=== PATIENT | female | born 1955 | race Caucasian/White ===

== ENCOUNTER 2016-06-30 06:37 | Inpatient (IN) | payer BC ==
[~2016-06-30] VITALS: Ht 162.6 cm; Wt 58.2 kg
[~2016-06-30 06:37] MED LIST: BACTRIM DS1 TAB PO; CIPROFLOXACN500 MG PO
[2016-06-30] MEDS ORDERED: NAPROXEN500 MG PO (06:49)
--- NOTE | 2016-06-30 06:59 | NUR ---
PT AMBULATORY TO ROOM, MOVES SLOWLY,BENDS DOWN TO REMOVE PANTS. STATES SHE CAN NOT PRODUCE URINE AT THIS TIME
--- NOTE | 2016-06-30 07:39 | NUR ---
PT AMBULATORY TO RR IN NO DISTRESS. OBTAINED DARK AVNI URINE FOR UA
[2016-06-30 07:58] LABS: HEMATOCRIT 38.9 % (37.0-47.0); HEMOGLOBIN 14.6 g/dl (12.0-16.0); IMMATURE GRANULOCYTES 1.1 % (0.0-1.0); MEAN CELL VOLUME 89.2 fL CALC (80.0-100.0); MEAN CORPUSCULAR HGB 33.5 pG CALC (26.0-32.0); MEAN CORPUSCULAR HGB CONC 37.5 g/L CALC (32.0-36.0); NEUT# 4.75 thou/uL (2.00-7.15); RED BLOOD COUNT 4.36 mill/uL (4.20-5.60); RED CELL DISTRI WIDTH 11.8 % (11.5-15.5)
[2016-06-30 08:00] LABS: URINE BILIRUBIN - DIPSTICK NEGATIVE (NEGATIVE); URINE BLOOD DIPSTICK NEGATIVE (NEGATIVE); URINE CLARITY CLEAR; URINE COLOR YELLOW; URINE GLUCOSE - DIPSTICK NEGATIVE (NEGATIVE); URINE KETONE TRACE mg/dL (NEGATIVE); URINE LEUK ESTERASE NEGATIVE (NEGATIVE); URINE NITRITE - DIPSTICK NEGATIVE (Negative); URINE PH 5.5 (4.5-8.0); URINE PROTEIN - DIPSTICK NEGATIVE (NEG-TRACE); URINE UROBILINOGEN - DIPSTICK 0.2 E.U./dL (0.2)
--- NOTE | 2016-06-30 08:00 | NUR ---
PT STATES NAUSEA HAS SUBSIDED AND PAIN HAS IMPROVED TO BACK. VSS.
[2016-06-30 08:16] LABS: ALBUMIN 4.8 g/dL (3.2-5.0); ALKALINE PHOSPHATASE 100 u/l (38-126); AMYLASE 51 u/l (30-110); BILIRUBIN, TOTAL 1.2 mg/dL (0.0-1.4); BUN 2 mg/dL (7-17); BUN/CREATININE RATIO 4 (12-20 (CALC)); CALCIUM 9.6 mg/dL (8.4-10.2); CARBON DIOXIDE 26 mmol/l (22-30); CHLORIDE 78 mmol/l (95-108); CREATININE 0.6 mg/dL (0.5-1.0); GFR > 60 ML/MIN (>=60 (CALC)); GFR FOR AFR.AMER. > 60 ML/MIN (>=60 (CALC)); GLUCOSE 113 mg/dL (65-105); LIPASE 73 u/l (23-300); POTASSIUM 2.7 mmol/l (3.5-5.1); SGOT/AST 64 u/l (14-36); SGPT/ALT 51 u/l (9-52); TOTAL PROTEIN 8.5 g/dL (6.3-8.2)
[2016-06-30 08:19] LABS: ANION GAP 17 (6-22 (CALC))
[2016-06-30 08:23] LABS: SODIUM 118 mmol/l (137-146)
--- NOTE | 2016-06-30 08:45 | NUR ---
PT AWARE OF ADMISSION AND AGREEABLE. VSS. STOCK SAW OPERATOR INTACT. MAEW, AMB TO RR WITH SLOW STEADY GAIT
--- NOTE | 2016-06-30 09:15 | NUR ---
PT ALERT AND ORIENTED X3. NO C/O OF CP OR SOB. VSS. ON CONTINUOUS MANAGER TRADING. TOLERATING IV FLUID BOLUS
--- NOTE | 2016-06-30 09:43 | NUR ---
CALLED REPORT TO FILI VALLECILLO,TRANSPORTED TO [facility] VIA STRETCHER ON TELE.
--- NOTE | 2016-06-30 10:12 | NUR ---
REPORT RECEIVED FROM MINOO IN ED, PT ARRIVED ON UNIT VIA STRETCHER AND TRANSFERRED TO BED, ALERT AND ORIENTED X 3, DENIES PAIN AT THIS TIME STATING SHE HAD LOWER BACK PAIN EARLIER BUT BUT HAD MED IN ED AND NOW PAIN FREE. ORIENTED TO ROOM AND CALL LUEVANO, IVF 0.9 NS & 40K INFUSING @ 100ML/HR TO SITE IN [facility]. EDUCATED ON FALL PRECAUTIONS, CALL LUEVANO IN REACH, WILL CONTINUE TO MONITOR.
[2016-06-30 10:14] VITALS: BP 160/98
--- NOTE | 2016-06-30 12:11 | NUR ---
RESTING N BED AT THIS TIME, INFORMED OF NEW ORDERS AND REASON FOR THEM, C/O DOES NOT LIKE MEAL, OFFERED ALTERNATIVE REQUESTED, WILL CONTINUE TO MONITOR.
[2016-06-30 12:21] VITALS: BP 150/90
[2016-06-30 13:32] LABS: POTASSIUM 3.3 mmol/l (3.5-5.1)
[2016-06-30 15:26] VITALS: BP 150/87
--- NOTE | 2016-06-30 15:35 | NUR ---
RESTING N BED AT THIS TIME, INFORMED OF NEW ORDERS AND STATES UNDERSTANDING, ALL NEEDS ADDRESSED, CALL LUEVANO IN REACH.
[2016-06-30 18:43] LABS: ANION GAP 12 (6-22 (CALC)); CALCIUM 9.3 mg/dL (8.4-10.2); CARBON DIOXIDE 25 mmol/l (22-30); CHLORIDE 90 mmol/l (95-108); CREATININE 0.5 mg/dL (0.5-1.0); GFR > 60 ML/MIN (>=60 (CALC)); GFR FOR AFR.AMER. > 60 ML/MIN (>=60 (CALC)); GLUCOSE 121 mg/dL (65-105); POTASSIUM 3.8 mmol/l (3.5-5.1); SODIUM 123 mmol/l (137-146)
[2016-06-30 18:46] LABS: BUN 2 mg/dL (7-17); BUN/CREATININE RATIO 4 (12-20 (CALC))
[2016-06-30 20:05] VITALS: BP 140/78
--- NOTE | 2016-06-30 20:20 | NUR ---
OOB TO BSC HAVING A LOOSE BROWN MODERATE SIZED BM. A/O X3, RESPIRATIONS EVEN AND UNLABORED. DENIES PAIN. NS INFUSING TO LAC AT 100CC/HR. ENCOURAGED TO USE CALL LIGHT FOR ASSISTANCE, WILL CONTINUE TO MONITOR.
--- NOTE | 2016-07-01 00:15 | NUR ---
IN [place] RESPIRATIONS EVEN AND UNLABORED, VOICES NO CONCERNS. IV FLUIDS INFUSING TO LAC WITH NO COMPLICATIONS. CALL SHAILA PEARSON.
[2016-07-01 00:50] VITALS: BP 133/80
[2016-07-01 05:15] VITALS: BP 149/85
--- NOTE | 2016-07-01 06:25 | NUR ---
PT IN [place] WATCHING TV, ADMITS TO GETTING VERY LITTLE SLEEP DURING THE NIGHT. IV FLUIDS INFUSING TO LAC WITH NO COMPLICATIONS.
[2016-07-01 06:43] LABS: BUN < 2 mg/dL (7-17); CALCIUM 9.2 mg/dL (8.4-10.2); CARBON DIOXIDE 23 mmol/l (22-30); CHLORIDE 96 mmol/l (95-108); CREATININE 0.4 mg/dL (0.5-1.0); GFR > 60 ML/MIN (>=60 (CALC)); GFR FOR AFR.AMER. > 60 ML/MIN (>=60 (CALC)); GLUCOSE 93 mg/dL (65-105); MAGNESIUM 1.9 mg/dL (1.6-2.3); POTASSIUM 3.8 mmol/l (3.5-5.1); SODIUM 128 mmol/l (137-146)
--- NOTE | 2016-07-01 07:34 | NUR ---
REPORT RECIEVED FROM PATRICK RAJAN; PT SITTING UP IN BED; NO S/S OF DISTRESS NOTED; PT DENIES ANY NEEDS AT THIS TIME; CALL LIGHT WITHIN REACH; WILL CONTINUE TO MONITOR
[2016-07-01 08:00] VITALS: BP 136/66
--- NOTE | 2016-07-01 11:29 | NUR ---
PT RESTING IN BED WITH EYES CLOSED; PT EASILY AROUSABLE; PT DENIES ANY NEEDS AT THIS TIME; IVF INFUSING AT PRESCRIBED RATE; CALL LIGHT WITHIN REACH; WILL CONTINUE TO MONITOR
--- NOTE | 2016-07-01 12:58 | NUR ---
Discharge instructions given. Patient verbalizes understanding of same. Discharged in stable condition via Wheelchair to Home with family. All belongings sent with pt.
== END 2016-07-01 12:57 | disposition home or self-care (01) | DRG 641 ==
LOC: ENPENDDIS → ED 06:37 → ED-I 07:04 → ED 08:41 → MS2 08:42
PROVIDERS: Emergency Medicine; Internal Medicine Nephrology; ADMIT Internal Medicine; ATTEND Internal Medicine
PROC: 3E0234Z Introduction of Serum, Toxoid and Vaccine into Muscle, Percutaneous Approach (ICD-10-PCS; principal; 2016-07-01)
DX: E87.1 Hypo-osmolality and hyponatremia (principal); E83.42 Hypomagnesemia; I10 Essential (primary) hypertension; E87.6 Hypokalemia; F17.210 Nicotine dependence, cigarettes, uncomplicated; F10.20 Alcohol dependence, uncomplicated; Z23 Encounter for immunization

== ENCOUNTER 2017-04-23 19:04 | Emergency (ER) | payer BC ==
[~2017-04-23] VITALS: Ht 162.6 cm; Wt 59.1 kg
[~2017-04-23 19:04] MED LIST changes: +NAPROXEN500 MG PO
[2017-04-23 20:57] LABS: IMMATURE GRANULOCYTES 1.5 % (0.0-1.0); MEAN CORPUSCULAR HGB 35.5 pG CALC (26.0-32.0); MEAN CORPUSCULAR HGB CONC 37.3 g/L CALC (32.0-36.0); NEUT# 8.79 thou/uL (2.00-7.15); RED BLOOD COUNT 3.35 mill/uL (4.20-5.60); RED CELL DISTRI WIDTH 13.7 % (11.5-15.5)
[2017-04-23 21:00] LABS: HEMATOCRIT 31.9 % (37.0-47.0); HEMOGLOBIN 11.9 g/dl (12.0-16.0); MEAN CELL VOLUME 95.2 fL CALC (80.0-100.0)
[2017-04-23 21:12] LABS: PROTHROMBIN TIME 11.1 SECONDS (9.0-12.5)
[2017-04-23 21:35] LABS: URINE BILIRUBIN - DIPSTICK NEGATIVE (NEGATIVE); URINE BLOOD DIPSTICK NEGATIVE (NEGATIVE); URINE COLOR YELLOW; URINE GLUCOSE - DIPSTICK NEGATIVE (NEGATIVE); URINE KETONE NEGATIVE (NEGATIVE); URINE LEUK ESTERASE NEGATIVE (NEGATIVE); URINE NITRITE - DIPSTICK NEGATIVE (Negative); URINE PROTEIN - DIPSTICK NEGATIVE (NEG-TRACE); URINE SPECIFIC GRAVITY <=1.005; URINE UROBILINOGEN - DIPSTICK 0.2 E.U./dL (0.2)
[2017-04-23 21:36] LABS: BARBITURATES NEGATIVE (NEGATIVE); COCAINE NEGATIVE (NEGATIVE); METHADONE NEGATIVE (NEGATIVE); OXCYCODONE NEGATIVE (NEGATIVE); TETRAHYDROCANNABIONOL NEGATIVE (NEGATIVE); TRICYLIC ANTIDEPRESSANTS NEGATIVE (NEGATIVE); URINE CLARITY CLEAR
[2017-04-23 21:37] LABS: ALBUMIN 3.7 g/dL (3.2-5.0); BILIRUBIN, TOTAL 1.3 mg/dL (0.0-1.4); BUN < 2 mg/dL (8-23); CARBON DIOXIDE 19 mmol/l (22-30); CHLORIDE 89 mmol/l (95-108); CREATININE 0.4 mg/dL (0.5-1.0); ETHYL ALCOHOL 0 mg/dl (0-30); GFR > 60 ML/MIN (>=60 (CALC)); GFR FOR AFR.AMER. > 60 ML/MIN (>=60 (CALC)); SGOT/AST 80 u/l (9-36); SGPT/ALT 36 u/l (11-66); SODIUM 123 mmol/l (137-146)
[2017-04-23 21:47] LABS: ALKALINE PHOSPHATASE 151 u/l (38-126); ANION GAP 17 (6-22 (CALC)); POTASSIUM 2.3 mmol/l (3.5-5.1); TOTAL PROTEIN 6.6 g/dL (6.3-8.2)
[2017-04-23 21:48] LABS: MYOGLOBIN 199 ng/mL (0 - 62)
[2017-04-23 23:09] VITALS: BP 165/94
== END 2017-04-23 23:09 | disposition short-term general hospital (02) | DRG 101 ==
LOC: ED 19:04
PROVIDERS: Emergency Medicine
DX: R56.9 Unspecified convulsions (principal); E87.1 Hypo-osmolality and hyponatremia; E87.6 Hypokalemia; R55 Syncope and collapse; Y92.009 Unspecified place in unspecified non-institutional (private) residence as the place of occurrence of the external cause; I10 Essential (primary) hypertension; F17.200 Nicotine dependence, unspecified, uncomplicated; R11.2 Nausea with vomiting, unspecified; R19.7 Diarrhea, unspecified; R94.31 Abnormal electrocardiogram [ECG] [EKG]
CPT/HCPCS: J2060

== ENCOUNTER 2017-06-19 12:21 | Day surgery (SDC) | payer BC ==
[~2017-06-19] VITALS: Ht 165.1 cm; Wt 56.7 kg
[~2017-06-19 12:21] MED LIST changes: +B121000 MCG PO; +LEVOTHYROXIN50 MCG PO; +LISINOPRIL20 MG PO; +POTASSIUM99 MG PO
[2017-06-19 14:37] VITALS: BP 101/67
== END 2017-06-19 14:50 | disposition home or self-care (01) | DRG 392 ==
LOC: ENDO 12:21
PROVIDERS: ATTEND Internal Medicine Gastroenterology
PROC: 0DBP8ZX Excision of Rectum, Via Natural or Artificial Opening Endoscopic, Diagnostic (ICD-10-PCS; principal; 2017-06-19)
PROC: 0DBE8ZX Excision of Large Intestine, Via Natural or Artificial Opening Endoscopic, Diagnostic (ICD-10-PCS; 2017-06-19)
DX: R19.7 Diarrhea, unspecified (principal); K63.3 Ulcer of intestine; K64.4 Residual hemorrhoidal skin tags; K64.8 Other hemorrhoids; D64.9 Anemia, unspecified; R79.89 Other specified abnormal findings of blood chemistry; E03.9 Hypothyroidism, unspecified; Z80.0 Family history of malignant neoplasm of digestive organs

== ENCOUNTER 2022-03-15 11:49 | Inpatient (IN) | payer MEDICARE ==
[~2022-03-15] VITALS: Ht 165.1 cm; Wt 55.0 kg
[2022-03-15 13:16] VITALS: BP 153/84
[2022-03-15 13:30] VITALS: BP 149/87
[2022-03-15 13:45] VITALS: BP 143/83
[2022-03-15 13:49] LABS: BASO% 0.3 % (0-3); EOS% 0.3 % (0-8); HEMATOCRIT 33.6 % (37.0-47.0); HEMOGLOBIN 11.9 g/dl (12.0-16.0); IMMATURE GRANULOCYTES 0.9 % (0.0-5.0); MEAN CORPUSCULAR HGB CONC 35.4 g/dL CAL (32.0-36.0); MONO% 5.8 % (2-13); NEUT# 12.32 thou/uL (2.00-7.15); NEUT% 82.7 % (42-76); RED BLOOD COUNT 3.5 mill/uL (4.20-5.60)
[2022-03-15 13:55] LABS: ALBUMIN 4.3 g/dL (3.2-5.0); ALKALINE PHOSPHATASE 90 u/l (38-126); BUN 6 mg/dL (8-23); BUN/CREATININE RATIO 10 (12-20 (CALC)); CARBON DIOXIDE 19 mmol/l (22-30); CHLORIDE 91 mmol/l (95-108); CREATININE 0.6 mg/dL (0.5-1.0); GFR FOR AFR.AMER. > 60 ML/MIN (>=60 (CALC)); GFR OTHER RACES > 60 ML/MIN (>=60 (CALC)); SGOT/AST 46 u/l (9-36); SODIUM 120 mmol/l (137-146); TOTAL PROTEIN 7.2 g/dL (6.3-8.2)
[2022-03-15 13:58] LABS: ANION GAP 14 (6-22 (CALC)); BILIRUBIN, TOTAL 0.5 mg/dL (0.02-1.3); POTASSIUM 4.1 mmol/l (3.5-5.1)
[2022-03-15 14:00] VITALS: BP 146/86
[2022-03-15 14:49] LABS: URINE BILIRUBIN - DIPSTICK MODERATE (NEGATIVE); URINE BLOOD DIPSTICK LARGE (NEGATIVE); URINE COLOR RED; URINE GLUCOSE - DIPSTICK 100 mg/dL (NEGATIVE); URINE KETONE 40 mg/dL (NEGATIVE); URINE LEUK ESTERASE MODERATE (NEGATIVE); URINE NITRITE - DIPSTICK POSITIVE (Negative); URINE PROTEIN - DIPSTICK >=300 mg/dL (NEG-TRACE)
[2022-03-15 14:50] LABS: URINE BACTERIA FEW hpf; URINE EPITHELIAL CELLS FEW EPI/hpf (0-FEW); URINE RBC TNTC RBC/hpf (0-5); URINE WBC 0-2 WBC/hpf (0-5)
[2022-03-15] MEDS ORDERED: SIMVASTATIN40 MG PO (20:36)
[2022-03-15] MEDS ORDERED: CLOPIDOGREL75 MG PO (20:37)
[2022-03-15] MEDS ORDERED: NIFEDIPINE60 MG PO (20:37)
[2022-03-15] MEDS ORDERED: B121000 MC1 PO (20:38)
[2022-03-15] MEDS ORDERED: VITAMIN E400 UNIT PO (20:39)
[2022-03-15 20:53] VITALS: BP 120/70
[2022-03-15 23:42] VITALS: BP 112/67
[2022-03-16 00:06] LABS: HEMATOCRIT 29.6 % (37.0-47.0); HEMOGLOBIN 10.4 g/dl (12.0-16.0)
[2022-03-16 04:12] VITALS: BP 130/66
[2022-03-16 06:05] VITALS: BP 116/61
[2022-03-16 06:07] LABS: HEMATOCRIT 29.3 % (37.0-47.0); HEMOGLOBIN 10.3 g/dl (12.0-16.0); MEAN CORPUSCULAR HGB 34.1 pG CALC (26.0-32.0); MEAN CORPUSCULAR HGB CONC 35.2 g/dL CAL (32.0-36.0); RED BLOOD COUNT 3.02 mill/uL (4.20-5.60); RED CELL DISTRI WIDTH 12.2 % (11.5-15.5)
[2022-03-16 06:19] LABS: BUN 3 mg/dL (8-23); BUN/CREATININE RATIO 7 (12-20 (CALC)); CHLORIDE 100 mmol/l (95-108); CREATININE 0.5 mg/dL (0.5-1.0); GFR FOR AFR.AMER. > 60 ML/MIN (>=60 (CALC)); GFR OTHER RACES > 60 ML/MIN (>=60 (CALC)); MAGNESIUM 1.6 mg/dL (1.6-2.3); POTASSIUM 3.7 mmol/l (3.5-5.1)
[2022-03-16 06:28] LABS: ANION GAP 7 (6-22 (CALC)); CARBON DIOXIDE 24 mmol/l (22-30); SODIUM 127 mmol/l (137-146)
[2022-03-16 08:23] VITALS: BP 151/79
[2022-03-16 10:53] VITALS: BP 145/78
[2022-03-16 12:18] LABS: HEMATOCRIT 32.2 % (37.0-47.0); HEMOGLOBIN 11.2 g/dl (12.0-16.0)
[2022-03-16 13:28] LABS: URINE BILIRUBIN - DIPSTICK NEGATIVE (NEGATIVE); URINE BLOOD DIPSTICK LARGE (NEGATIVE); URINE CLARITY SL CLOUDY; URINE COLOR DK. YELLOW; URINE GLUCOSE - DIPSTICK NEGATIVE (NEGATIVE); URINE KETONE NEGATIVE (NEGATIVE); URINE LEUK ESTERASE NEGATIVE (Negative); URINE NITRITE - DIPSTICK NEGATIVE (Negative); URINE PROTEIN - DIPSTICK 100 mg/dL (NEG-TRACE); URINE UROBILINOGEN - DIPSTICK 0.2 E.U./dL (0.2)
[2022-03-16 13:31] LABS: URINE WBC 0-2 WBC/hpf (0-5)
[2022-03-16 15:18] VITALS: BP 130/70
[2022-03-16 22:13] VITALS: BP 106/62
[2022-03-17 00:31] VITALS: BP 112/63
[2022-03-17 04:45] VITALS: BP 118/62
[2022-03-17 05:03] LABS: HEMATOCRIT 29.7 % (37.0-47.0); HEMOGLOBIN 10.3 g/dl (12.0-16.0); MEAN CORPUSCULAR HGB 34.3 pG CALC (26.0-32.0); MEAN CORPUSCULAR HGB CONC 34.7 g/dL CAL (32.0-36.0); RED CELL DISTRI WIDTH 12.5 % (11.5-15.5)
[2022-03-17 05:16] LABS: ANION GAP 9 (6-22 (CALC)); BUN < 2 mg/dL (8-23); BUN/CREATININE RATIO 4 (12-20 (CALC)); CARBON DIOXIDE 22 mmol/l (22-30); CHLORIDE 105 mmol/l (95-108); CREATININE 0.5 mg/dL (0.5-1.0); GFR FOR AFR.AMER. > 60 ML/MIN (>=60 (CALC)); GFR OTHER RACES > 60 ML/MIN (>=60 (CALC)); MAGNESIUM 1.6 mg/dL (1.6-2.3); POTASSIUM 3.7 mmol/l (3.5-5.1); SODIUM 132 mmol/l (137-146)
[2022-03-17 06:02] VITALS: BP 129/66
[2022-03-17 10:30] VITALS: BP 182/88
[2022-03-17] MEDS ORDERED: KEFLEX500 MG PO (10:53)
[2022-03-17 12:00] VITALS: BP 140/88
[2022-03-18] MEDS ORDERED: KEFLEX500 MG PO (17:22)
== END 2022-03-17 13:52 | DRG 696 ==
LOC: ED 11:49 → ED-I 18:38 → ED 18:53 → MS2 18:54
PROVIDERS: Emergency Medicine; ADMIT Internal Medicine; ATTEND Internal Medicine
PROC: 0T9B70Z Drainage of Bladder with Drainage Device, Via Natural or Artificial Opening (ICD-10-PCS; principal; 2022-03-16)
DX: R31.0 Gross hematuria (principal); E87.1 Hypo-osmolality and hyponatremia; N39.0 Urinary tract infection, site not specified; R33.8 Other retention of urine; D75.839 Thrombocytosis, unspecified; I10 Essential (primary) hypertension; I70.1 Atherosclerosis of renal artery; E03.9 Hypothyroidism, unspecified; F10.20 Alcohol dependence, uncomplicated; F17.200 Nicotine dependence, unspecified, uncomplicated
CPT/HCPCS: Q9967

== ENCOUNTER 2022-04-01 08:05 | Inpatient (IN) | payer MEDICARE ==
[2022-04-01] VITALS (8 sets, daily range): BP systolic 118–197; BP diastolic 54–107
[~2022-04-01] VITALS: Ht 165.1 cm; Wt 54.1 kg
[~2022-04-01 08:05] MED LIST changes: +B121000 MC1 PO; +CLOPIDOGREL75 MG PO; +KEFLEX500 MG PO; +NIFEDIPINE60 MG PO; +SIMVASTATIN40 MG PO; +VITAMIN E400 UNIT PO
[2022-04-01 09:03] LABS: URINE BLOOD DIPSTICK LARGE (NEGATIVE); URINE COLOR YELLOW; URINE GLUCOSE - DIPSTICK NEGATIVE (NEGATIVE); URINE KETONE 40 mg/dL (NEGATIVE); URINE PROTEIN - DIPSTICK 100 mg/dL (NEG-TRACE); URINE SPECIFIC GRAVITY >=1.030
[2022-04-01 09:12] LABS: URINE BILIRUBIN - DIPSTICK MODERATE (NEGATIVE); URINE LEUK ESTERASE MODERATE (NEGATIVE); URINE NITRITE - DIPSTICK POSITIVE (Negative)
[2022-04-01 09:13] LABS: BASO% 0.1 % (0-3); EOS% 0.1 % (0-8); IMMATURE GRANULOCYTES 0.8 % (0.0-5.0); LYMPH% 7.9 % (15-41); MEAN CORPUSCULAR HGB 33.3 pG CALC (26.0-32.0); MEAN CORPUSCULAR HGB CONC 36.9 g/dL CAL (32.0-36.0); MONO% 9.3 % (2-13); NEUT# 10.49 thou/uL (2.00-7.15); NEUT% 81.8 % (42-76); RED BLOOD COUNT 4.2 mill/uL (4.20-5.60)
[2022-04-01 09:13] LABS: URINE BACTERIA MANY hpf; URINE EPITHELIAL CELLS FEW EPI/hpf (0-FEW); URINE RBC 25-50 RBC/hpf (0-5); URINE WBC 20-50 WBC/hpf (0-5)
[2022-04-01 09:26] LABS: ALBUMIN 4.6 g/dL (3.2-5.0); ALKALINE PHOSPHATASE 113 u/l (38-126); CARBON DIOXIDE 21 mmol/l (22-30); CREATININE 0.5 mg/dL (0.5-1.0); GFR FOR AFR.AMER. > 60 ML/MIN (>=60 (CALC)); GFR OTHER RACES > 60 ML/MIN (>=60 (CALC)); SGOT/AST 49 u/l (9-36); TOTAL PROTEIN 7.7 g/dL (6.3-8.2)
[2022-04-01 09:34] LABS: HEMATOCRIT 37.9 % (37.0-47.0); MEAN CELL VOLUME 90.2 fL CALC (80.0-100.0)
[2022-04-01 09:57] LABS: TSH, 3RD GENERATION 2.04 uIU/mL (0.47 - 4.68)
[2022-04-01 10:00] LABS: BUN < 2 mg/dL (8-23); BUN/CREATININE RATIO 4 (12-20 (CALC))
[2022-04-01 10:01] LABS: ANION GAP 17 (6-22 (CALC)); BILIRUBIN, TOTAL 1.1 mg/dL (0.02-1.3); CHLORIDE 74 mmol/l (95-108); POTASSIUM 2.8 mmol/l (3.5-5.1); SODIUM 109 mmol/l (137-146)
[2022-04-01 11:35] LABS: BUN 2 mg/dL (8-23); BUN/CREATININE RATIO 6 (12-20 (CALC)); CARBON DIOXIDE 18 mmol/l (22-30); CHLORIDE 78 mmol/l (95-108); CREATININE 0.3 mg/dL (0.5-1.0); GFR FOR AFR.AMER. > 60 ML/MIN (>=60 (CALC)); GFR OTHER RACES > 60 ML/MIN (>=60 (CALC))
[2022-04-01 11:37] LABS: ANION GAP 16 (6-22 (CALC)); POTASSIUM 3.7 mmol/l (3.5-5.1); SODIUM 108 mmol/l (137-146)
[2022-04-01 14:50] LABS: ANION GAP 15 (6-22 (CALC)); CARBON DIOXIDE 18 mmol/l (22-30); CHLORIDE 83 mmol/l (95-108); CREATININE 0.3 mg/dL (0.5-1.0); GFR FOR AFR.AMER. > 60 ML/MIN (>=60 (CALC)); GFR OTHER RACES > 60 ML/MIN (>=60 (CALC)); POTASSIUM 3.3 mmol/l (3.5-5.1)
[2022-04-01 14:56] LABS: BUN < 2 mg/dL (8-23); BUN/CREATININE RATIO 7 (12-20 (CALC))
[2022-04-01 15:05] LABS: SODIUM 113 mmol/l (137-146)
[2022-04-01 18:53] LABS: CHLORIDE 84 mmol/l (95-108); CREATININE 0.4 mg/dL (0.5-1.0); GFR FOR AFR.AMER. > 60 ML/MIN (>=60 (CALC)); GFR OTHER RACES > 60 ML/MIN (>=60 (CALC)); POTASSIUM 2.8 mmol/l (3.5-5.1)
[2022-04-01 19:04] LABS: ANION GAP 10 (6-22 (CALC)); BUN 2 mg/dL (8-23); BUN/CREATININE RATIO 5 (12-20 (CALC)); CARBON DIOXIDE 22 mmol/l (22-30); SODIUM 113 mmol/l (137-146)
[2022-04-01 23:24] LABS: ANION GAP 7 (6-22 (CALC)); CARBON DIOXIDE 20 mmol/l (22-30); CHLORIDE 90 mmol/l (95-108); CREATININE 0.4 mg/dL (0.5-1.0); GFR FOR AFR.AMER. > 60 ML/MIN (>=60 (CALC)); GFR OTHER RACES > 60 ML/MIN (>=60 (CALC)); POTASSIUM 2.6 mmol/l (3.5-5.1)
[2022-04-01 23:33] LABS: BUN < 2 mg/dL (8-23); BUN/CREATININE RATIO 5 (12-20 (CALC))
[2022-04-01 23:34] LABS: SODIUM 114 mmol/l (137-146)
[2022-04-02] VITALS (7 sets, daily range): BP systolic 93–163; BP diastolic 55–86
[2022-04-02 08:34] LABS: HEMATOCRIT 36.9 % (37.0-47.0); HEMOGLOBIN 13.2 g/dl (12.0-16.0); MEAN CELL VOLUME 91.8 fL CALC (80.0-100.0); MEAN CORPUSCULAR HGB 32.8 pG CALC (26.0-32.0); MEAN CORPUSCULAR HGB CONC 35.8 g/dL CAL (32.0-36.0); RED BLOOD COUNT 4.02 mill/uL (4.20-5.60); RED CELL DISTRI WIDTH 11.2 % (11.5-15.5)
[2022-04-02 08:50] LABS: ALBUMIN 4.2 g/dL (3.2-5.0); AMYLASE 47 u/l (30-110); CARBON DIOXIDE 19 mmol/l (22-30); CHLORIDE 91 mmol/l (95-108); CREATININE 0.4 mg/dL (0.5-1.0); GFR FOR AFR.AMER. > 60 ML/MIN (>=60 (CALC)); GFR OTHER RACES > 60 ML/MIN (>=60 (CALC)); LIPASE 80 u/l (23-300)
[2022-04-02 08:53] LABS: BUN < 2 mg/dL (8-23)
[2022-04-02 08:54] LABS: MAGNESIUM 2.4 mg/dL (1.6-2.3); POTASSIUM 3.6 mmol/l (3.5-5.1); SODIUM 120 mmol/l (137-146)
[2022-04-03 00:07] VITALS: BP 117/68
[2022-04-03 04:35] VITALS: BP 114/66
[2022-04-03 05:57] LABS: BASO% 0.4 % (0-3); EOS% 0.7 % (0-8); HEMATOCRIT 31.5 % (37.0-47.0); IMMATURE GRANULOCYTES 1.4 % (0.0-5.0); LYMPH% 23.5 % (15-41); MEAN CELL VOLUME 93.8 fL CALC (80.0-100.0); MEAN CORPUSCULAR HGB 32.4 pG CALC (26.0-32.0); MEAN CORPUSCULAR HGB CONC 34.6 g/dL CAL (32.0-36.0); MONO% 11.5 % (2-13); NEUT# 5.04 thou/uL (2.00-7.15); NEUT% 62.5 % (42-76); RED BLOOD COUNT 3.36 mill/uL (4.20-5.60); RED CELL DISTRI WIDTH 11.5 % (11.5-15.5)
[2022-04-03 06:13] LABS: HEMOGLOBIN 10.9 g/dl (12.0-16.0)
[2022-04-03 06:17] LABS: ALKALINE PHOSPHATASE 75 u/l (38-126); ANION GAP 6 (6-22 (CALC)); CARBON DIOXIDE 22 mmol/l (22-30); CHLORIDE 100 mmol/l (95-108); CREATININE 0.3 mg/dL (0.5-1.0); GFR FOR AFR.AMER. > 60 ML/MIN (>=60 (CALC)); GFR OTHER RACES > 60 ML/MIN (>=60 (CALC)); MAGNESIUM 1.8 mg/dL (1.6-2.3); POTASSIUM 3.5 mmol/l (3.5-5.1); SGOT/AST 31 u/l (9-36); SODIUM 125 mmol/l (137-146)
[2022-04-03 06:18] LABS: ALBUMIN 3.3 g/dL (3.2-5.0); BILIRUBIN, TOTAL 0.4 mg/dL (0.02-1.3); BUN 2 mg/dL (8-23); BUN/CREATININE RATIO 7 (12-20 (CALC)); TOTAL PROTEIN 5.9 g/dL (6.3-8.2)
[2022-04-03 06:55] VITALS: BP 154/81
[2022-04-03 10:10] VITALS: BP 125/73
[2022-04-03] MEDS ORDERED: LEVAQUIN750 M1 PO (10:30)
[2022-04-03] MEDS ORDERED: CHLORDIAZEPOXID25 M1 PO (10:30)
== END 2022-04-03 13:54 | DRG 641 ==
LOC: ED 08:05 → ED-I 10:00 → ED 10:35 → MS2 10:36
PROVIDERS: Family Medicine; Internal Medicine Nephrology; Nurse Practitioner Family; ADMIT Internal Medicine; ATTEND Internal Medicine
DX: E87.1 Hypo-osmolality and hyponatremia (principal); N39.0 Urinary tract infection, site not specified; E87.6 Hypokalemia; E87.20 Acidosis, unspecified; F10.20 Alcohol dependence, uncomplicated; E83.39 Other disorders of phosphorus metabolism; E83.42 Hypomagnesemia; I10 Essential (primary) hypertension; I70.1 Atherosclerosis of renal artery; E03.9 Hypothyroidism, unspecified; R33.9 Retention of urine, unspecified; F17.200 Nicotine dependence, unspecified, uncomplicated; B96.5 Pseudomonas (aeruginosa) (mallei) (pseudomallei) as the cause of diseases classified elsewhere; Z20.822 Contact with and (suspected) exposure to COVID-19; Z96.0 Presence of urogenital implants
CPT/HCPCS: J1650; J3475

== ENCOUNTER 2023-03-10 16:07 | Inpatient (IN) | payer MEDICARE ==
[~2023-03-10] VITALS: Ht 165.1 cm; Wt 56.6 kg
[2023-03-10] VITALS (12 sets, daily range): BP systolic 107–154; BP diastolic 69–88
[~2023-03-10 16:07] MED LIST changes: +CHLORDIAZEPOXID25 M1 PO; +LEVAQUIN750 M1 PO
--- NOTE | 2023-03-10 16:15 | NUR ---
PT TO ROOM 8 VIA W/C, C/O ABD PAIN WITH WEAKNESS, CHANGED TO GOWN, CALL LIGHT IN REACH, AT SIDE, PROVIDER NOTIFIED.
--- NOTE | 2023-03-10 17:15 | NUR ---
IN ROOM TO PLACE KING CATH PER ORDERS, PETE BHATIA NOTED, CALL LIGHT IN REACH, IN ROOM.
[2023-03-10 17:17] LABS: BUN 4 mg/dL (8-23); BUN/CREATININE RATIO 10 (12-20 (CALC)); CARBON DIOXIDE 23 mmol/l (22-30); CREATININE 0.4 mg/dL (0.5-1.0); GFR FOR AFR.AMER. > 60 ML/MIN (>=60 (CALC)); GFR OTHER RACES > 60 ML/MIN (>=60 (CALC)); POTASSIUM 2.8 mmol/l (3.5-5.1); SGOT/AST 45 u/l (9-36)
[2023-03-10 17:20] LABS: BASO% 0.2 % (0-3); EOS% 1.7 % (0-8); HEMATOCRIT 34.2 % (37.0-47.0); HEMOGLOBIN 12.8 g/dl (12.0-16.0); IMMATURE GRANULOCYTES 1.5 % (0.0-5.0); LYMPH% 7.8 % (15-41); MEAN CELL VOLUME 89.5 fL CALC (80.0-100.0); MEAN CORPUSCULAR HGB 33.5 pG CALC (26.0-32.0); MEAN CORPUSCULAR HGB CONC 37.4 g/dL CAL (32.0-36.0); MONO% 11.2 % (2-13); NEUT# 13.17 thou/uL (2.00-7.15); NEUT% 77.6 % (42-76); RED BLOOD COUNT 3.82 mill/uL (4.20-5.60); RED CELL DISTRI WIDTH 12.7 % (11.5-15.5)
[2023-03-10 17:27] LABS: ALBUMIN 4.3 g/dL (3.2-5.0); ALKALINE PHOSPHATASE 152 u/l (38-126); ANION GAP 14 (6-22 (CALC)); BILIRUBIN, TOTAL 0.8 mg/dL (0.02-1.3); CHLORIDE 72 mmol/l (95-108); SODIUM 106 mmol/l (137-146); TOTAL PROTEIN 7.4 g/dL (6.3-8.2)
[2023-03-10 18:01] LABS: URINE BILIRUBIN - DIPSTICK Negative (NEGATIVE); URINE BLOOD DIPSTICK Negative (NEGATIVE); URINE GLUCOSE - DIPSTICK Negative (NEGATIVE); URINE KETONE Negative (NEGATIVE); URINE LEUK ESTERASE Negative (NEGATIVE); URINE NITRITE - DIPSTICK Negative (Negative); URINE PROTEIN - DIPSTICK Negative (NEG-TRACE); URINE UROBILINOGEN - DIPSTICK 0.2 E.U./dL (0.2)
[2023-03-10 18:02] LABS: URINE COLOR Yellow
[2023-03-10] MEDS ORDERED: NIFEDIPINE90 M1 PO (19:14)
[2023-03-10] MEDS ORDERED: LEVOTHYROXIN25 MC1 PO (19:15)
--- NOTE | 2023-03-10 19:20 | NUR ---
RECIEVED REPORT FROM FILI ABEBE AT THIS TIME. PATIENT RESTING TO (R) SIDE, PATIENT UPDATED ON CONTINUOUS PLAN OF CARE, PATIENT VERBALIZES UNDERSTANDING, PATIENT NOTED TO BE SLOW TO RESPOND AT THIS TIME. PATIENT HAS IVF NS RUNNING PER ORDERS. LIGHTS DIMMED FOR COMFORT AT THIS TIME, WARM BLANKET APPLIED, AWAITING ALL FURTHER ORDERS/RESULTS.
--- NOTE | 2023-03-10 20:00 | NUR ---
PATIENT UPDATED ON CONTINUOUS PLAN OF CARE WITH NO FURTHER QUESTIONS OR CONCERNS AT THIS TIME, IVF RUNNING AT THIS TIME, PATIENT KING UNCLAMPED AT THIS TIME AND RECLAMPED DUE TO LARGE AMOUNT OF URINE, PATIENT UPDATED ON PLAN FOR ADMISSION, AWAITING ROOM ASSIGNMENT AT THIS TIME.
--- NOTE | 2023-03-10 20:30 | NUR ---
PATIENT REMAINS AALERT AND ORIENTATED X4, SLOW TO RESPOND TO QUESTIONS, PATIENT VOICES HEARING AIDS ARE NOT IN PLACE, PATIENT KING UNCLAMPED AT THIS TIME, CONTINUOUS URINE DRAINAGE NOTED, KING RECLAMPED AT THIS TIME, IVF CONTINUALLY RUNNING, AWAITING ROOM ASSIGNMENT AT THIS TIME.
--- NOTE | 2023-03-10 21:00 | NUR ---
PATIENT STATUS REMAINS WITHOUT CHANGE AT THIS TIME, KING UNCLAMPED AND RECLAMPED DUE TO SLOWER CONTINUAL URINE DRAINAGE, TOTAL OUTPUT AT THIS TIME IS NOTED TO BE 1575ML SINCE 1900, PATIENT VOICES NO DISCOMFORT OF ABDOMEN, DENIES PAIN, PATIENT CONNECTED TO CONTINUOUS MONITOORING, AWAITING ROOM ASSIGNMENT AT THIS TIME.
--- NOTE | 2023-03-10 21:50 | NUR ---
PATIENT MEDICATED PER ORDERS AT THIS TIME. UPDATED ON CONTINUOUS PLAN OF CARE AT THIS TIME, PATIENT VOICES UNDERSTANDING WITH NO FURTHER QUESTIONS OR CONCERNS AT THIS TIME ,PATIENT REMAINS ALERT AND ORIENTATED X4, PATIENT AWAITING ROOM ASSIGNMENT AT THIS TIME. IVF RUNNING CONTINUALLY.
--- NOTE | 2023-03-10 22:06 | NUR ---
REPORT CALLED TO FILI LUND AT THIS TIME, PATIENT AWAITING TRANSPORT TO FLOOR.
--- NOTE | 2023-03-10 22:19 | NUR ---
PATIENT GATHERED ALL BELONGINGS AT THIS TIME, PATIENT REMAINS WITHOUT CHANGE, NO NUERO DEFICITS NOTED, IVF RUNNING CONTINUALLY, PATIENT UPDATED ON CONTINUOUS PLAN OF CARE, TRANSPORTED TO ICU AT THIS TIIME BY WEL[facility] AGENT ON CONTINUOUS MONITORING.
--- NOTE | 2023-03-10 22:20 | NUR ---
PT ADMITTED TO ICU BED 2 VIA STRETCHER FROM E.R. PT STOOD AND TRANSFERRED TO BED WITH ONE MOD ASSIST, PT GAIT SLIGHTLY UNSTEADY; PER PT HAS BEEN THAT WAY SINCE YESTERDAY (03/09/23); PT DENIES USING/NEEDING A CANE, WALKER OR OTHER ASSISTIVE DEVICE AT HOME; PT ADMITS TO DRINKING 3-4 BEERS PER DAY; AND SMOKING 2 OACKS OF CIGARETTES AT HOME WELL; PT CAME INTO E.R. FO URINARY RETENTION; KING PLACED IN E.R. AND PER REPORT PT HAD TOTAL OF 4075 mL URINE OUT PER REPORT; PT ALERT ADN ORIENTED; COMPLAINS ONLY OF THE UNSTEADINESS COMPLAINT. NS INFUCING AT PRESCRIBED RATE; PT TAKES PO MEDICATIONS W/O INCIDENT. SAFETY MEASURES INTRODUCED; PT INSTRUCTED / ENCOURGAED TO CALL FOR ANY OOB ACTIVITY; PT VERBALIZES UNDERSTANDING AND COMPLAINCY; ORIENTED TO ROOM AND UNIT; CALL LUEVANO WITHIN REACH;, WILL COTNINUE TO MONITOR.
[2023-03-11] VITALS (25 sets, daily range): BP systolic 80–147; BP diastolic 39–79
--- NOTE | 2023-03-11 00:01 | NUR ---
PT RESTING NO NEW COMPLAINTS OFFERED; IVF CONTINUE ORDERED; EASILY VISIBLE FROM NURSES STATION FOR SAFETY. WILL CONTINUE TO MONITOR.
--- NOTE | 2023-03-11 01:17 | NUR ---
PT RESTING; NO S/S OF DITRESS; CALL LUEVANO WITHIN REACH; WILL CONTINUE TO MONITOR
--- NOTE | 2023-03-11 02:40 | NUR ---
PT RESTING WITH EYES CLOSED; NO S/S OF DISTRESS OR DISCOMFORT; KING CATH INTACT DRAINING CLEAR YELLOW URINE; IVF INFUSING W/O INCIDENT
--- NOTE | 2023-03-11 04:40 | NUR ---
LAB AT [facility] FOR AM DRAW; PT REQUESTED TO ATTEMPT TO DRAW FROM IV ACCESS; UNSUCCESSFUL; LAB OBTAINED W/O INCIDENT; CALL LUEVANO WITHIN REACH; WILL CONTINUE TO MONITOR
[2023-03-11 05:10] LABS: BASO% 0.4 % (0-3); EOS% 3.9 % (0-8); HEMATOCRIT 34.3 % (37.0-47.0); HEMOGLOBIN 12.6 g/dl (12.0-16.0); IMMATURE GRANULOCYTES 1.7 % (0.0-5.0); LYMPH% 11.2 % (15-41); MEAN CELL VOLUME 91.2 fL CALC (80.0-100.0); MEAN CORPUSCULAR HGB 33.5 pG CALC (26.0-32.0); MEAN CORPUSCULAR HGB CONC 36.7 g/dL CAL (32.0-36.0); MONO% 13.6 % (2-13); NEUT# 6.59 thou/uL (2.00-7.15); NEUT% 69.2 % (42-76); RED BLOOD COUNT 3.76 mill/uL (4.20-5.60); RED CELL DISTRI WIDTH 12.8 % (11.5-15.5)
--- NOTE | 2023-03-11 05:25 | NUR ---
KING EMPTIED OF 850 mL CLEAR YELLOW URINE; PT REPOSITIONS SELF FOR COMFORT; NO COMPLAINTS OFFERED; WILL CONTINUE TO MONITOR; CALL LUEVANO WITHIN REACH.
[2023-03-11 05:35] LABS: ALBUMIN 3.5 g/dL (3.2-5.0); ALKALINE PHOSPHATASE 132 u/l (38-126); BILIRUBIN, TOTAL 0.9 mg/dL (0.02-1.3); BUN 3 mg/dL (8-23); BUN/CREATININE RATIO 8 (12-20 (CALC)); CALCULATED LDLCHOLESTEROL 77 mg/dL (62-129 (CALC)); CARBON DIOXIDE 24 mmol/l (22-30); CREATININE 0.4 mg/dL (0.5-1.0); GFR FOR AFR.AMER. > 60 ML/MIN (>=60 (CALC)); GFR OTHER RACES > 60 ML/MIN (>=60 (CALC)); HDL CHOLESTEROL 102 mg/dL (39.0-59.0); MAGNESIUM 1.9 mg/dL (1.6-2.3); SGOT/AST 36 u/l (9-36); TOTAL CHOLESTEROL 202 mg/dl (0-199); TOTAL PROTEIN 6.2 g/dL (6.3-8.2); TOTAL TRIGLYCERIDES 114 mg/dl (0-149); VLDL CHOLESTROL 23 mg/dl (1-41 (CALC))
[2023-03-11 05:40] LABS: ANION GAP 12 (6-22 (CALC)); CHLORIDE 88 mmol/l (95-108); POTASSIUM 3.7 mmol/l (3.5-5.1); SODIUM 120 mmol/l (137-146)
--- NOTE | 2023-03-11 06:25 | NUR ---
PT AWAKENED TO TAKE AM POMEDICATION; TOLERATED W/O INCIDENT; NA REMAINS LOW BUT MUCH IMPROVED ID POTASSIUM; CALL LUEVANO WITHIN REACH, KING CATH INTACT DRAINING CELAR YELLOW URINE; WILL CONTINUE TO MONITOR.
--- NOTE | 2023-03-11 07:04 | NUR ---
PT REPORT RECEIVED FROM STATISTICS INTERN. PT IS SLEEPING AT THIS TIME. VITAL SIGNS STABLE. IV FLUIDS INFUSING.
--- NOTE | 2023-03-11 12:00 | NUR ---
pt sitting up in bed, states usually drinks 6 pack of beer a night and wants something for nerves, dr. valdovinos notified and mvi bag ordered. pt alert/oriented x3.
--- NOTE | 2023-03-11 15:09 | NUR ---
PT REMAINS PAIN FREE, RESTING QUIETLY ON BED, VITAL SIGNS STABLE. WILL CONTINUE TO MONITER.
--- NOTE | 2023-03-11 17:43 | NUR ---
pt sitting up in bed eating, no complaints, vital signs remain stable.
--- NOTE | 2023-03-11 19:20 | NUR ---
PT ALERT ADN ORIENTED; RESTING IN BED; NO COMPAINTS VOICED AT THIS TIME; NS INFUSING AT PRESCRIBED RATE; PT TAKES PO MEDICATIONS W/O INCIDENT. SAFETY MEASURES REINFORCED; PT INSTRUCTED / ENCOURGAED TO CALL FOR ANY OOB ACTIVITY; PT VERBALIZES UNDERSTANDING AND COMPLIANCY; RE-ORIENTED TO ROOM AND UNIT; CALL LUEVANO WITHIN REACH;, WILL COTNINUE TO MONITOR.
--- NOTE | 2023-03-11 21:05 | NUR ---
MEDICATED ORDERED, OFFERS NO COMPLAINTS; ASKING ABOUT THE FREQUENCY OF THE NICOTINE PATCH; EDUCATION PROVIDED; WILL CONTINUE TO MONITOR.
--- NOTE | 2023-03-11 22:15 | NUR ---
PT WATCHING TELEVISION; NO S/S OF DISTRESS; KING INTACT DRAINING LARGE AMOUTNS CLEAR YELLOW URINE. CALL LUEVANO WITHIN REACH; WILL CONTINUE TO MONITOR
[2023-03-12] VITALS (17 sets, daily range): BP systolic 127–182; BP diastolic 59–102
--- NOTE | 2023-03-12 00:05 | NUR ---
PT RETIGN WITH EYES CLOSED; KING EMPTIED OF 1800 ML CLEAR YELLOW URINE; IVF CONTINUE AT PRESCRIBED RATE; NO S/S OF DISTRESS OR DISCOMFORT; CALL LUEVANO WITHIN REACH; WILL CONTINUE TO MONITOR.
--- NOTE | 2023-03-12 02:10 | NUR ---
PT RESTING WITH EYES CLOSED; NO S/S OF DISTRESS OR DISCOMFORT; CALL LUEVANO WITHIN REACH.
--- NOTE | 2023-03-12 03:43 | NUR ---
PT DOZING; EYES CLOSED; RESPS EVEN AND UNLABORED; NO S/S OF DISTRESS OR DISCOMFORT; CALL LUEVANO WITHIN REACH.
--- NOTE | 2023-03-12 04:44 | NUR ---
PT DOZING; OFFERS NO COMPLAINTS; CALL LUEVANO WITHIN REACH.
--- NOTE | 2023-03-12 05:11 | NUR ---
LAB AT BEDSIDE FOR AM DRAW.
[2023-03-12 06:23] LABS: BASO% 0.8 % (0-3); EOS% 4.3 % (0-8); IMMATURE GRANULOCYTES 1.9 % (0.0-5.0); LYMPH% 17.3 % (15-41); MEAN CELL VOLUME 95.2 fL CALC (80.0-100.0); MEAN CORPUSCULAR HGB 34.6 pG CALC (26.0-32.0); MEAN CORPUSCULAR HGB CONC 36.4 g/dL CAL (32.0-36.0); MONO% 13.9 % (2-13); NEUT# 4.92 thou/uL (2.00-7.15); NEUT% 61.8 % (42-76); RED BLOOD COUNT 2.89 mill/uL (4.20-5.60)
[2023-03-12 06:24] LABS: HEMATOCRIT 27.5 % (37.0-47.0)
--- NOTE | 2023-03-12 06:26 | NUR ---
pt takes am po medications w/o incident; no complaints voiced; call manuel within reach.
[2023-03-12 06:29] LABS: ALKALINE PHOSPHATASE 94 u/l (38-126); BUN 2 mg/dL (8-23); BUN/CREATININE RATIO 7 (12-20 (CALC)); CARBON DIOXIDE 22 mmol/l (22-30); CREATININE 0.4 mg/dL (0.5-1.0); GFR FOR AFR.AMER. > 60 ML/MIN (>=60 (CALC)); GFR OTHER RACES > 60 ML/MIN (>=60 (CALC)); POTASSIUM 3.3 mmol/l (3.5-5.1); SGOT/AST 31 u/l (9-36)
[2023-03-12 06:39] LABS: ALBUMIN 2.6 g/dL (3.2-5.0); ANION GAP 5 (6-22 (CALC)); BILIRUBIN, TOTAL 0.4 mg/dL (0.02-1.3); CHLORIDE 103 mmol/l (95-108); MAGNESIUM 1.4 mg/dL (1.6-2.3); SODIUM 127 mmol/l (137-146); TOTAL PROTEIN 4.9 g/dL (6.3-8.2)
--- NOTE | 2023-03-12 08:30 | NUR ---
ASSESSMENT IS COMPLETED: IV SITE IS FREE FROM REDNESS OR EDEMA. KING DRAIMING YELLOW URINE. HR IS REG,PULSES ARE STRONG X4,ABD IS SOFT WITH ACTIVE BS. BREATH SOUNDS ARE DIMINISHED AND HAS EXPIRATORY WHEEZING ON LEFT UPPER LOBE. CONTINUE TO OBSERVE AND MONITOR.
--- NOTE | 2023-03-12 09:42 | NUR ---
PT IS GETTING KING DISCONTINUED CATHETER INTACT.
--- NOTE | 2023-03-12 10:00 | NUR ---
PT HAS BEEN RELAXING IN BED WITH NO DISTRESS NOTED. IV SITE REMAINS FREE FROM REDNESS OR EDEMA.
[2023-03-12] MEDS ORDERED: TAMSULOSIN0.4 MG PO (10:36)
--- NOTE | 2023-03-12 12:17 | NUR ---
IV SITE TAKEN OUT AND CATHETER INTACT. PT IS CALLING FOR HER RIDE.
--- NOTE | 2023-03-12 13:00 | NUR ---
PT HAS BEEN DISCHARGED. WENT BY PRASANNA.
== END 2023-03-12 12:30 | disposition home or self-care (01) | DRG 641 ==
LOC: ED 16:07 → ED-I 18:15 → ED 19:42 → ICU 19:43
PROVIDERS: Nurse Practitioner; ADMIT Student in an Organized Health Care Education/Training Program; ATTEND Student in an Organized Health Care Education/Training Program
PROC: 0T9B70Z Drainage of Bladder with Drainage Device, Via Natural or Artificial Opening (ICD-10-PCS; principal; 2023-03-10)
DX: E87.1 Hypo-osmolality and hyponatremia (principal); E87.6 Hypokalemia; R33.9 Retention of urine, unspecified; E87.8 Other disorders of electrolyte and fluid balance, not elsewhere classified; E83.42 Hypomagnesemia; I10 Essential (primary) hypertension; E03.9 Hypothyroidism, unspecified; I70.1 Atherosclerosis of renal artery; F10.20 Alcohol dependence, uncomplicated; F17.210 Nicotine dependence, cigarettes, uncomplicated
CPT/HCPCS: J1650; J3475

== ENCOUNTER 2023-03-28 14:12 | Emergency (ER) | payer MEDICARE ==
[2023-03-28] VITALS (11 sets, daily range): BP systolic 142–186; BP diastolic 85–104
[~2023-03-28] VITALS: Ht 165.1 cm; Wt 57.1 kg
[~2023-03-28 14:12] MED LIST changes: +LEVOTHYROXIN25 MC1 PO; +NIFEDIPINE90 M1 PO; +TAMSULOSIN0.4 MG PO
[2023-03-28] MEDS ORDERED: ORPHENADRINE CITRATE 30 MG/ML AMP IM ONE (14:55)
[2023-03-28] MEDS ORDERED: KETOROLAC TROMETHAMINE 30 MG/ML SDV IM ONE (14:55)
[2023-03-28] MEDS ORDERED: DEXAMETHASONE SOD. PHOSPHATE 10 MG/ML VIAL IM ONE (14:55)
[2023-03-28 16:43] LABS: BASO% 0.1 % (0-3); EOS% 0.1 % (0-8); IMMATURE GRANULOCYTES 0.4 % (0.0-5.0); LYMPH% 7.2 % (15-41); MEAN CELL VOLUME 96.2 fL CALC (80.0-100.0); MEAN CORPUSCULAR HGB 33.8 pG CALC (26.0-32.0); MEAN CORPUSCULAR HGB CONC 35.1 g/dL CAL (32.0-36.0); MONO% 5.8 % (2-13); NEUT# 17.8 thou/uL (2.00-7.15); NEUT% 86.4 % (42-76); RED BLOOD COUNT 4.26 mill/uL (4.20-5.60); RED CELL DISTRI WIDTH 13.1 % (11.5-15.5)
[2023-03-28 16:48] LABS: BUN 5 mg/dL (8-23); BUN/CREATININE RATIO 15 (12-20 (CALC)); CARBON DIOXIDE 20 mmol/l (22-30); CHLORIDE 92 mmol/l (95-108); CREATININE 0.3 mg/dL (0.5-1.0); GFR FOR AFR.AMER. > 60 ML/MIN (>=60 (CALC)); GFR OTHER RACES > 60 ML/MIN (>=60 (CALC)); SODIUM 121 mmol/l (137-146)
[2023-03-28 16:49] LABS: ALBUMIN 4.2 g/dL (3.2-5.0); ALKALINE PHOSPHATASE 201 u/l (38-126); ANION GAP 13 (6-22 (CALC)); BILIRUBIN, TOTAL 0.8 mg/dL (0.02-1.3); POTASSIUM 4.3 mmol/l (3.5-5.1); SGOT/AST 55 u/l (9-36); TOTAL PROTEIN 7.1 g/dL (6.3-8.2)
[2023-03-28 17:11] LABS: HEMOGLOBIN 14.4 g/dl (12.0-16.0)
[2023-03-28 17:24] LABS: ACT PARTIAL THROMBO TIME 25.3 SECONDS (20.0-32.5); PROTHROMBIN TIME 9.5 SECONDS (9.0-12.5)
== END 2023-03-28 16:54 | disposition left against medical advice (07) ==
LOC: ED 14:12 → ED-I 15:58 → ED 16:54
PROVIDERS: Emergency Medicine
DX: S32.592A Other specified fracture of left pubis, initial encounter for closed fracture (principal); I10 Essential (primary) hypertension; F17.210 Nicotine dependence, cigarettes, uncomplicated; W19.XXXA Unspecified fall, initial encounter; Y92.009 Unspecified place in unspecified non-institutional (private) residence as the place of occurrence of the external cause; Z53.29 Procedure and treatment not carried out because of patient's decision for other reasons

== ENCOUNTER 2023-03-30 10:48 | Observation (INO) | payer MEDICARE ==
[~2023-03-30] VITALS: Ht 165.1 cm; Wt 57.0 kg
[2023-03-30] VITALS (11 sets, daily range): BP systolic 124–169; BP diastolic 68–98
[2023-03-30 12:47] LABS: BASO% 0.2 % (0-3); EOS% 0.2 % (0-8); IMMATURE GRANULOCYTES 0.9 % (0.0-5.0); LYMPH% 9.7 % (15-41); MEAN CELL VOLUME 96.1 fL CALC (80.0-100.0); MEAN CORPUSCULAR HGB 33.3 pG CALC (26.0-32.0); MEAN CORPUSCULAR HGB CONC 34.7 g/dL CAL (32.0-36.0); MONO% 6.9 % (2-13); NEUT# 12.06 thou/uL (2.00-7.15); NEUT% 82.1 % (42-76); RED BLOOD COUNT 3.63 mill/uL (4.20-5.60)
[2023-03-30 12:52] LABS: HEMATOCRIT 34.9 % (37.0-47.0); HEMOGLOBIN 12.1 g/dl (12.0-16.0)
[2023-03-30 12:55] LABS: URINE BILIRUBIN - DIPSTICK Negative (NEGATIVE); URINE BLOOD DIPSTICK Negative (NEGATIVE); URINE GLUCOSE - DIPSTICK Negative (NEGATIVE); URINE KETONE Negative (NEGATIVE); URINE PROTEIN - DIPSTICK Negative (NEG-TRACE); URINE UROBILINOGEN - DIPSTICK 0.2 E.U./dL (0.2)
[2023-03-30 12:56] LABS: URINE COLOR Yellow; URINE LEUK ESTERASE Moderate (NEGATIVE); URINE NITRITE - DIPSTICK Positive (Negative)
[2023-03-30 13:04] LABS: URINE RBC 0-2 RBC/hpf (0-5); URINE WBC 20-50 WBC/hpf (0-5)
[2023-03-30 13:05] LABS: URINE BACTERIA MODERATE hpf; URINE EPITHELIAL CELLS FEW EPI/hpf (0-FEW)
[2023-03-30 13:10] LABS: ALKALINE PHOSPHATASE 172 u/l (38-126); BUN 4 mg/dL (8-23); BUN/CREATININE RATIO 11 (12-20 (CALC)); CARBON DIOXIDE 20 mmol/l (22-30); CHLORIDE 87 mmol/l (95-108); CREATININE 0.4 mg/dL (0.5-1.0); GFR FOR AFR.AMER. > 60 ML/MIN (>=60 (CALC)); GFR OTHER RACES > 60 ML/MIN (>=60 (CALC)); POTASSIUM 3.9 mmol/l (3.5-5.1); SGOT/AST 39 u/l (9-36); TOTAL PROTEIN 6.7 g/dL (6.3-8.2)
[2023-03-30 13:12] LABS: ANION GAP 14 (6-22 (CALC))
[2023-03-30 13:38] LABS: SODIUM 117 mmol/l (137-146)
[2023-03-30] MEDS ORDERED: cefTRIAXone SODIUM 2 GM in SODIUM CHLORIDE 0.9% 100 ML IV ONE (13:40)
[2023-03-30] MEDS ORDERED: SODIUM CHLORIDE 0.9% 1,000 ML IV ONE (13:40)
[2023-03-30] MEDS ORDERED: MAGNESIUM HYDROXIDE 30 ML UDC PO PRN (14:15)
[2023-03-30] MEDS ORDERED: ACETAMINOPHEN 325 MG/TAB PO PRN (14:15)
[2023-03-30] MEDS ORDERED: HYDROcodone 5 MG/Acetaminophen 325 MG/COMBO PO PRN (14:20)
[2023-03-30] MEDS ORDERED: chlordiazePOXIDE HCL 25 MG CAP PO PRN (14:40)
[2023-03-30] MEDS ORDERED: cloNIDine HCL 0.1 MG/TAB PO PRN (14:40)
[2023-03-30] MEDS ORDERED: MULTIPLE VITAMIN 10 ML,THIAMINE HCL 100 MG in DEXTROSE 5% / 0.9% NACL 1,000 ML IV ONE (14:40)
[2023-03-30] MEDS ORDERED: SODIUM CHLORIDE 0.9% 1,000 ML IV PRN (15:00)
[2023-03-30] MEDS ORDERED: MIDAZOLAM HCL 2 MG/2 ML VIAL IM PRN (15:15)
[2023-03-30] MEDS ORDERED: MIDAZOLAM HCL 2 MG/2 ML VIAL IV PRN (15:15)
[2023-03-30] MEDS ORDERED: CEFEPIME HYDROCHLORIDE 1 GM in SODIUM CHLORIDE 0.9% 50 ML IV SCH (15:30)
[2023-03-30] MEDS ORDERED: hydrALAZINE HCL 20 MG/ML VIAL(1 ML) IV PRN (16:00)
[2023-03-30] MEDS ORDERED: NICOTINE TRANSDERMAL 21 MG/PATCH TD SCH (16:13)
[2023-03-30] MEDS ORDERED: ENOXAPARIN SODIUM 40 MG/0.4 ML SYR SC SCH (21:00)
[2023-03-31] VITALS (7 sets, daily range): BP systolic 107–150; BP diastolic 54–75
[2023-03-31] MEDS ORDERED: LEVOTHYROXINE SODIUM 25 MCG/TAB PO SCH (06:00)
[2023-03-31 06:52] LABS: BASO% 0.2 % (0-3); EOS% 0.4 % (0-8); HEMATOCRIT 31.6 % (37.0-47.0); HEMOGLOBIN 10.8 g/dl (12.0-16.0); IMMATURE GRANULOCYTES 0.9 % (0.0-5.0); LYMPH% 11.6 % (15-41); MEAN CELL VOLUME 99.1 fL CALC (80.0-100.0); MEAN CORPUSCULAR HGB 33.9 pG CALC (26.0-32.0); MEAN CORPUSCULAR HGB CONC 34.2 g/dL CAL (32.0-36.0); MONO% 8.1 % (2-13); NEUT# 8.82 thou/uL (2.00-7.15); NEUT% 78.8 % (42-76); RED BLOOD COUNT 3.19 mill/uL (4.20-5.60); RED CELL DISTRI WIDTH 13.1 % (11.5-15.5)
[2023-03-31 07:39] LABS: ALBUMIN 3.2 g/dL (3.2-5.0); ALKALINE PHOSPHATASE 143 u/l (38-126); BILIRUBIN, TOTAL 0.8 mg/dL (0.02-1.3); BUN 3 mg/dL (8-23); BUN/CREATININE RATIO 8 (12-20 (CALC)); CARBON DIOXIDE 21 mmol/l (22-30); CREATININE 0.4 mg/dL (0.5-1.0); GFR FOR AFR.AMER. > 60 ML/MIN (>=60 (CALC)); GFR OTHER RACES > 60 ML/MIN (>=60 (CALC)); MAGNESIUM 1.7 mg/dL (1.6-2.3); POTASSIUM 3.9 mmol/l (3.5-5.1); SGOT/AST 31 u/l (9-36); TOTAL PROTEIN 5.7 g/dL (6.3-8.2)
[2023-03-31 07:58] LABS: ANION GAP 10 (6-22 (CALC)); CHLORIDE 102 mmol/l (95-108); SODIUM 129 mmol/l (137-146)
[2023-03-31] MEDS ORDERED: NIFEdipine 60 MG TAB PO SCH (09:00)
[2023-03-31] MEDS ORDERED: THIAMINE HCL 100 MG TAB PO SCH (09:00)
[2023-03-31] MEDS ORDERED: CLOPIDOGREL BISULFATE 75 MG/TAB TAB PO SCH (09:00)
[2023-03-31] MEDS ORDERED: MULTIPLE VITAMIN TABLET PO SCH (09:00)
[2023-03-31] MEDS ORDERED: FOLIC ACID 1 MG/TAB PO SCH (09:00)
[2023-04-01 04:00] VITALS: BP 135/69
[2023-04-01 07:13] LABS: BASO% 0.4 % (0-3); EOS% 0.6 % (0-8); HEMATOCRIT 31.4 % (37.0-47.0); HEMOGLOBIN 10.5 g/dl (12.0-16.0); IMMATURE GRANULOCYTES 1.3 % (0.0-5.0); LYMPH% 11.4 % (15-41); MEAN CELL VOLUME 101.3 fL CALC (80.0-100.0); MEAN CORPUSCULAR HGB 33.9 pG CALC (26.0-32.0); MEAN CORPUSCULAR HGB CONC 33.4 g/dL CAL (32.0-36.0); MONO% 10.2 % (2-13); NEUT# 8.17 thou/uL (2.00-7.15); NEUT% 76.1 % (42-76); RED BLOOD COUNT 3.1 mill/uL (4.20-5.60); RED CELL DISTRI WIDTH 13.3 % (11.5-15.5)
[2023-04-01 07:55] LABS: ALBUMIN 3.2 g/dL (3.2-5.0); ALKALINE PHOSPHATASE 147 u/l (38-126); ANION GAP 7 (6-22 (CALC)); BILIRUBIN, TOTAL 0.7 mg/dL (0.02-1.3); BUN 4 mg/dL (8-23); BUN/CREATININE RATIO 11 (12-20 (CALC)); CARBON DIOXIDE 21 mmol/l (22-30); CHLORIDE 103 mmol/l (95-108); CREATININE 0.3 mg/dL (0.5-1.0); GFR FOR AFR.AMER. > 60 ML/MIN (>=60 (CALC)); GFR OTHER RACES > 60 ML/MIN (>=60 (CALC)); MAGNESIUM 1.5 mg/dL (1.6-2.3); POTASSIUM 3.4 mmol/l (3.5-5.1); SGOT/AST 28 u/l (9-36); SODIUM 128 mmol/l (137-146); TOTAL PROTEIN 5.8 g/dL (6.3-8.2)
[2023-04-01] MEDS ORDERED: POTASSIUM CHLORIDE 20 MEQ/TAB PO SCH (09:00)
[2023-04-01 20:17] VITALS: BP 128/69
[2023-04-02 00:47] VITALS: BP 126/67
[2023-04-02 04:04] VITALS: BP 145/77
[2023-04-02 05:30] LABS: BASO% 0.3 % (0-3); EOS% 0.8 % (0-8); HEMOGLOBIN 9.6 g/dl (12.0-16.0); IMMATURE GRANULOCYTES 1.1 % (0.0-5.0); LYMPH% 15.2 % (15-41); MEAN CELL VOLUME 100.3 fL CALC (80.0-100.0); MEAN CORPUSCULAR HGB 33.2 pG CALC (26.0-32.0); MEAN CORPUSCULAR HGB CONC 33.1 g/dL CAL (32.0-36.0); MONO% 10.8 % (2-13); NEUT# 7.35 thou/uL (2.00-7.15); NEUT% 71.8 % (42-76); RED BLOOD COUNT 2.89 mill/uL (4.20-5.60); RED CELL DISTRI WIDTH 13.2 % (11.5-15.5)
[2023-04-02 05:49] LABS: ALBUMIN 2.9 g/dL (3.2-5.0); ALKALINE PHOSPHATASE 125 u/l (38-126); ANION GAP 7 (6-22 (CALC)); BILIRUBIN, TOTAL 0.5 mg/dL (0.02-1.3); BUN 3 mg/dL (8-23); BUN/CREATININE RATIO 7 (12-20 (CALC)); CARBON DIOXIDE 24 mmol/l (22-30); CHLORIDE 104 mmol/l (95-108); CREATININE 0.4 mg/dL (0.5-1.0); GFR FOR AFR.AMER. > 60 ML/MIN (>=60 (CALC)); GFR OTHER RACES > 60 ML/MIN (>=60 (CALC)); MAGNESIUM 1.7 mg/dL (1.6-2.3); POTASSIUM 3.9 mmol/l (3.5-5.1); SGOT/AST 23 u/l (9-36); SODIUM 131 mmol/l (137-146); TOTAL PROTEIN 5.3 g/dL (6.3-8.2)
[2023-04-02 07:00] VITALS: BP 136/69
[2023-04-02 08:35] VITALS: BP 136/69
[2023-04-02] MEDS ORDERED: BACTRIM DS1 TAB PO (09:18)
[2023-04-02] MEDS ORDERED: LORTAB5 PO (09:22)
== END 2023-04-02 10:40 ==
LOC: ED 10:48 → ED-I 12:47 → ED 14:03 → MS2 14:04
PROVIDERS: Family Medicine; Nurse Practitioner Family; ADMIT Student in an Organized Health Care Education/Training Program; ATTEND Student in an Organized Health Care Education/Training Program
DX: S32.512A Fracture of superior rim of left pubis, initial encounter for closed fracture (principal); N30.00 Acute cystitis without hematuria; B96.20 Unspecified Escherichia coli [E. coli] as the cause of diseases classified elsewhere; E87.1 Hypo-osmolality and hyponatremia; I12.9 Hypertensive chronic kidney disease with stage 1 through stage 4 chronic kidney disease, or unspecified chronic kidney disease; N18.9 Chronic kidney disease, unspecified; E03.9 Hypothyroidism, unspecified; E78.5 Hyperlipidemia, unspecified; F10.20 Alcohol dependence, uncomplicated; F17.210 Nicotine dependence, cigarettes, uncomplicated; W19.XXXA Unspecified fall, initial encounter; Z20.822 Contact with and (suspected) exposure to COVID-19
CPT/HCPCS: J0692; J1650